=== PATIENT | female | born 1990 | race Caucasian/White ===

== ENCOUNTER 2020-05-06 06:00 | Inpatient (IN) | payer BC ==
[2020-05-06] MEDS ORDERED: ELECTROLYTE-148 SOLN 500 ML IV ONE ×3 (06:30→07:56)
[2020-05-06] MEDS ORDERED: CITRIC ACID/SODIUM CITRATE 30 ML UNIT-DOSE CUP PO ONE ×2 (06:30→07:56)
[2020-05-06 07:08] VITALS: BMI 26.8
[2020-05-06] MEDS ORDERED: morphine SULFATE/PF 0.5 MG/ML (2cc Syringe - QUVA) EP ONE (07:49)
[2020-05-06] MEDS ORDERED: ONDANSETRON 4 MG/2 ML VIAL IVPUSH PRN (07:49)
[2020-05-06] MEDS ORDERED: ceFAZolin SODIUM 1 GM VIAL ONE (07:57)
[2020-05-06] MEDS ORDERED: ELECTROLYTE-148 SOLN 1,000 ML IV SCH (08:00)
[2020-05-06] MEDS ORDERED: OXYTOCIN 10 UNITS/ML VIAL ONE ×2 (08:24→08:47)
[2020-05-06] MEDS ORDERED: SENNOSIDES/DOCUSATE COMBO (SENNA PLUS) TABLET (UD) PO PRN (09:07)
[2020-05-06] MEDS ORDERED: METHYLERGONOVINE MALEATE 0.2 MG/1 ML AMP IM PRN (09:07)
[2020-05-06] MEDS: OXYTOCIN 20 UNITS in 0.9% NS 20 UNIT/1,000 ML INFUS.BAG IV SCH ×2 (09:30→19:00)
[2020-05-06] MEDS ORDERED: OXYTOCIN 20 UNITS in 0.9% NS 20 UNIT/1,000 ML INFUS.BAG IV ONE (09:58)
[2020-05-06] MEDS: IBUPROFEN 800 MG/8 ML IJ IVPB PRN ×2 (11:43→21:35)
[2020-05-06] MEDS: PRENATAL VITAMINS W/ FOLIC ACID TABLET (FP) PO SCH (11:56)
[2020-05-06] MEDS: SIMETHICONE 80 MG TAB.CHEW (FP) PO PRN (21:28)
[2020-05-06] MEDS ORDERED: ZOLPIDEM TARTRATE 5 MG TABLET PO PRN (22:00)
[2020-05-07] MEDS: ACETAMINOPHEN 325 MG TABLET (FP) PO PRN ×2 (05:55→10:00)
[2020-05-07] MEDS: IBUPROFEN 600 MG TABLET (FP) PO PRN ×4 (05:56→20:50)
[2020-05-07] MEDS: SIMETHICONE 80 MG TAB.CHEW (FP) PO PRN ×3 (05:56→20:50)
[2020-05-07] MEDS ORDERED: BISACODYL 10 MG SUPP.RECT RC PRN (09:07)
[2020-05-07 09:11] LABS: BASO % 0.6 % (0-2.0); EOS % 1.9 % (0-4.5); HEMATOCRIT 31.3 % (32.4-45.2); HEMOGLOBIN 10.6 GM/dL (10.7-15.3); LYMPH % 18.8 % (8-40); MCH 30.8 pg (25.7-33.7); MCHC 33.8 g/dl (32.0-36.0); MEAN CELL VOLUME 91.1 fl (80-96); MEAN PLT VOLUME 10.6 fl (7.5-11.1); MONO % 6.3 % (3.8-10.2); NEUT % 72.4 % (42.8-82.8); PLATELET COUNT 142 K/MM3 (134-434); RBC 3.44 M/mm3 (3.60-5.2); RDW 13.1 % (11.6-15.6)
[2020-05-07] MEDS ORDERED: DIPHTH,PERTUSS(ACELL),TET 0.5 ML DISP.SYRIN IM ONE (10:00)
[2020-05-07] MEDS ORDERED: FLU VACCINE (FLULAVAL) PF 60 MCG/0.5 ML SYRINGE 2020-2021 IM ONE (10:00)
[2020-05-07] MEDS: PRENATAL VITAMINS W/ FOLIC ACID TABLET (FP) PO SCH (10:01)
[2020-05-07] MEDS: oxyCODONE HCL 5 MG TABLET PO PRN ×2 (16:03→20:49)
[2020-05-07] MEDS ORDERED: ZOLPIDEM TARTRATE 5 MG TABLET PO PRN ×2 (20:42→22:00)
[2020-05-07] MEDS: OXYTOCIN 20 UNITS in 0.9% NS 20 UNIT/1,000 ML INFUS.BAG IV SCH (22:52)
[2020-05-07 23:40] VITALS: PULSE 61
[2020-05-08] MEDS: SIMETHICONE 80 MG TAB.CHEW (FP) PO PRN ×2 (03:28→08:18)
[2020-05-08] MEDS: IBUPROFEN 600 MG TABLET (FP) PO PRN ×2 (03:31→11:19)
[2020-05-08] MEDS: oxyCODONE HCL 5 MG TABLET PO PRN ×3 (03:32→13:35)
[2020-05-08] MEDS: ACETAMINOPHEN 325 MG TABLET (FP) PO PRN ×2 (08:17→13:36)
[2020-05-08] MEDS: PRENATAL VITAMINS W/ FOLIC ACID TABLET (FP) PO SCH (09:20)
[2020-05-08 09:55] VITALS: BP 136/72; TEMP 98.7
[2020-05-08] MEDS: OXYTOCIN 20 UNITS in 0.9% NS 20 UNIT/1,000 ML INFUS.BAG IV SCH (14:00)
== END 2020-05-08 16:13 | disposition home or self-care (01) | DRG 788 ==
LOC: JLDR 06:00 → J3W 10:43
PROVIDERS: ADMIT Obstetrics & Gynecology; ATTEND Obstetrics & Gynecology
PROC: 10D00Z1 Extraction of Products of Conception, Low, Open Approach (ICD-10-PCS; principal; 2020-05-06)
DX: O34.211 Maternal care for low transverse scar from previous cesarean delivery (principal); Z3A.39 39 weeks gestation of pregnancy; Z37.0 Single live birth
CPT/HCPCS: 36415; 85025; 88307-TC; 90715; G0008; Q2036

== ENCOUNTER 2021-04-21 06:00 | Inpatient (IN) | payer BC ==
[2021-04-21 07:03] VITALS: BMI 25.9
[2021-04-21] MEDS ORDERED: OXYTOCIN 20 UNITS in 0.9% NS 40 UNIT/2,000 ML INFUS.BAG IV ONE (07:58)
[2021-04-21] MEDS ORDERED: CLINDAMYCIN PHOSPHATE 600 MG/4 ML VIAL ONE (08:01)
[2021-04-21] MEDS ORDERED: MORPHINE 5 MG/10 ML AMP - FOR COMPOUNDING USE ONLY ONE (08:08)
[2021-04-21] MEDS ORDERED: ELECTROLYTE-148 SOLN 500 ML IV ONE (08:10)
[2021-04-21] MEDS ORDERED: CITRIC ACID/SODIUM CITRATE 30 ML UNIT-DOSE CUP PO ONE (08:10)
[2021-04-21] MEDS ORDERED: ELECTROLYTE-148 SOLN 1,000 ML IV SCH (08:15)
[2021-04-21] MEDS ORDERED: PHENYLEPHRINE HCL 10 MG/1 ML SINGLE DOSE VIAL ONE (08:24)
[2021-04-21] MEDS ORDERED: DEXAMETHASONE SOD PHOSPHATE 4 MG/1 ML VIAL ONE (08:33)
[2021-04-21] MEDS ORDERED: ONDANSETRON 4 MG/2 ML VIAL ONE (08:33)
[2021-04-21] MEDS ORDERED: KETOROLAC TROMETHAMINE 30 MG/1 ML VIAL ONE (08:33)
[2021-04-21] MEDS ORDERED: MIDAZOLAM HCL 2 MG/2 ML SINGLE DOSE VIAL ONE (08:44)
[2021-04-21] MEDS ORDERED: ONDANSETRON 4 MG/2 ML VIAL IVPUSH PRN (09:22)
[2021-04-21] MEDS ORDERED: ACETAMINOPHEN 1000 MG/100 ML VIAL (NON FORMULARY) IVPB PRN (09:23)
[2021-04-21] MEDS ORDERED: IBUPROFEN 800 MG/8 ML IJ IVPB PRN (09:27)
[2021-04-21] MEDS ORDERED: METHYLERGONOVINE MALEATE 0.2 MG/1 ML AMP IM PRN (09:27)
[2021-04-21] MEDS ORDERED: SENNOSIDES/DOCUSATE COMBO (SENNA PLUS) TABLET (UD) PO PRN (09:27)
[2021-04-21] MEDS ORDERED: OXYTOCIN 20 UNITS in 0.9% NS 20 UNIT/1,000 ML INFUS.BAG IV SCH (09:30)
[2021-04-21] MEDS: PRENATAL VITAMINS W/ FOLIC ACID TABLET (FP) PO SCH (10:26)
[2021-04-21] MEDS ORDERED: CALCIUM CARBONATE 650 MG TABLET PO PRN (19:34)
[2021-04-22] MEDS: ZOLPIDEM TARTRATE 5 MG TABLET PO PRN (00:49)
[2021-04-22 06:53] LABS: BASO % 0.7 % (0-2.0); EOS % 1.4 % (0-4.5); HEMATOCRIT 24.6 % (32.4-45.2); HEMOGLOBIN 8.7 GM/dL (10.7-15.3); LYMPH % 25.9 % (8-40); MCH 31.1 pg (25.7-33.7); MCHC 35.3 g/dl (32.0-36.0); MEAN CELL VOLUME 88.1 fl (80-96); MEAN PLT VOLUME 9.8 fl (7.5-11.1); MONO % 5.5 % (3.8-10.2); NEUT % 66.5 % (42.8-82.8); PLATELET COUNT 174 10^3/uL (134-434); RDW 13.5 % (11.6-15.6)
[2021-04-22] MEDS: oxyCODONE HCL 5 MG TABLET PO PRN ×3 (08:15→22:58)
[2021-04-22] MEDS: ACETAMINOPHEN 325 MG TABLET (FP) PO PRN ×2 (08:17→15:58)
[2021-04-22] MEDS: SIMETHICONE 80 MG TAB.CHEW (FP) PO PRN ×3 (08:17→21:53)
[2021-04-22] MEDS: PRENATAL VITAMINS W/ FOLIC ACID TABLET (FP) PO SCH (09:30)
[2021-04-22] MEDS: IBUPROFEN 600 MG TABLET (FP) PO PRN ×2 (10:52→21:53)
[2021-04-22] MEDS: BISACODYL 10 MG SUPP.RECT RC PRN (20:08)
[2021-04-23] MEDS: ZOLPIDEM TARTRATE 5 MG TABLET PO PRN (01:00)
[2021-04-23] MEDS: oxyCODONE HCL 5 MG TABLET PO PRN ×4 (07:41→19:44)
[2021-04-23] MEDS: SIMETHICONE 80 MG TAB.CHEW (FP) PO PRN ×3 (07:41→19:44)
[2021-04-23] MEDS: FERROUS SO4 325 MG TABLET (FP) PO SCH ×2 (09:30→18:03)
[2021-04-23] MEDS: PRENATAL VITAMINS W/ FOLIC ACID TABLET (FP) PO SCH (09:30)
[2021-04-23] MEDS: BISACODYL 10 MG SUPP.RECT RC PRN (14:45)
[2021-04-24] MEDS: oxyCODONE HCL 5 MG TABLET PO PRN (07:25)
[2021-04-24] MEDS: PRENATAL VITAMINS W/ FOLIC ACID TABLET (FP) PO SCH (09:15)
[2021-04-24] MEDS: FERROUS SO4 325 MG TABLET (FP) PO SCH (09:15)
[2021-04-24 11:47] VITALS: BP 130/65; PULSE 70; TEMP 97.8
== END 2021-04-24 11:05 | disposition home or self-care (01) | DRG 788 ==
LOC: JLDR 06:00 → J3W 10:45
PROVIDERS: ADMIT Obstetrics & Gynecology; ATTEND Obstetrics & Gynecology
PROC: 10D00Z1 Extraction of Products of Conception, Low, Open Approach (ICD-10-PCS; principal; 2021-04-21)
DX: O34.211 Maternal care for low transverse scar from previous cesarean delivery (principal); Z3A.39 39 weeks gestation of pregnancy; Z37.0 Single live birth
CPT/HCPCS: 36415; 85025; 88307-TC

== ENCOUNTER 2025-01-29 06:07 | Day surgery (SDC) | payer BC ==
[2025-01-25 12:44] VITALS: BMI 21.7
[2025-01-29] MEDS ORDERED: GENTAMICIN SO4 80 MG/2 ML VIAL ONE (07:42)
[2025-01-29] MEDS ORDERED: BUPIVACAINE HCL/PF 0.25% (2.5MG/ML) 10 ML VIAL ONE (07:43)
[2025-01-29] MEDS ORDERED: LIDOCAINE 1%/EPI 1:100000 (20 ML MULTI DOSE VIAL) ONE (07:43)
[2025-01-29] MEDS ORDERED: EPINEPHrine 1:1000 P/F - 1 MG/ML AMP ONE (07:53)
[2025-01-29] MEDS ORDERED: MIDAZOLAM HCL 2 MG/2 ML SINGLE DOSE VIAL ONE ×2 (07:56→08:06)
[2025-01-29] MEDS ORDERED: PROPOFOL 60 ML ONE (07:56)
[2025-01-29] MEDS ORDERED: ONDANSETRON 4 MG/2 ML VIAL ONE (07:57)
[2025-01-29] MEDS ORDERED: SUCCINYLCHOLINE CHLORIDE 200 MG/10 ML SYRINGE ONE ×2 (07:57→08:13)
[2025-01-29] MEDS ORDERED: DEXAMETHASONE SOD PHOSPHATE 4 MG/1 ML VIAL ONE (07:57)
[2025-01-29] MEDS ORDERED: SEVOFLURANE 250 ML BTL ONE (07:57)
[2025-01-29] MEDS ORDERED: LIDOCAINE HCL 2% 100 MG/5 ML DISP.SYRIN ONE (08:11)
[2025-01-29] MEDS ORDERED: ROCURONIUM BROMIDE 50 MG/5 ML SYRINGE ONE (08:13)
[2025-01-29] MEDS ORDERED: TRANEXAMIC ACID 1000 MG/10 ML VIAL ONE (08:24)
[2025-01-29] MEDS ORDERED: methylPREDNISolone ACET (DEPO) 80 MG/1 ML VIAL ONE (09:39)
[2025-01-29] MEDS ORDERED: BUPIVACAINE LIPOSOME/PF (EXPAREL) 266 MG/20 ML VIAL ONE (09:41)
[2025-01-29] MEDS ORDERED: VANCOMYCIN 1,000 MG VIAL (RESTRICTED TO ID ONLY) ONE (09:45)
[2025-01-29] MEDS: methylPREDNISolone ACET (DEPO) 80 MG/1 ML VIAL IJ ONE (09:45)
[2025-01-29] MEDS: BUPIVACAINE LIPOSOME/PF (EXPAREL) 266 MG/20 ML VIAL IJ ONE (09:50)
[2025-01-29] MEDS: VANCOMYCIN 1,000 MG VIAL (RESTRICTED TO ID ONLY) IVPB ONE (09:55)
[2025-01-29] MEDS ORDERED: PROPOFOL 20 ML ONE (10:00)
[2025-01-29] MEDS ORDERED: LACTATED RINGERS SOLUTION 1,000 ML IV SCH (10:30)
[2025-01-29] MEDS ORDERED: ONDANSETRON 4 MG/2 ML VIAL IVPUSH PRN (10:30)
[2025-01-29] MEDS ORDERED: PROMETHAZINE HCL 25 MG/1 ML VIAL IVPB PRN ×2 (10:30→11:04)
[2025-01-29] MEDS: ACETAMINOPHEN 1000 MG/100 ML BAG IVPB ONE (10:45)
[2025-01-29] MEDS ORDERED: ACETAMINOPHEN 500 MG TABLET (FP) PO SCH (10:45)
[2025-01-29] MEDS ORDERED: morphine CARPU-JECT 4 MG/1 ML DISP.SYRIN IVPUSH PRN (11:04)
[2025-01-29] MEDS ORDERED: HEPARIN NA (PORCINE) 5,000 UNITS/ML 1ML VIAL SQ SCH (11:04)
[2025-01-29] MEDS ORDERED: diphenhydrAMINE HCL 25 MG CAPSULE (FP) PO PRN (11:04)
[2025-01-29] MEDS: LACTATED RINGERS SOLUTION 1,000 ML IV SCH (11:51)
[2025-01-29] MEDS: ONDANSETRON 4 MG/2 ML VIAL IVPUSH PRN ×2 (15:46→21:49)
[2025-01-29] MEDS: DOCUSATE SODIUM 100 MG CAPSULE (FP) PO SCH (16:16)
[2025-01-29] MEDS ORDERED: METOCLOPRAMIDE HCL 10 MG TABLET (FP) PO ONE (17:24)
[2025-01-29] MEDS: FAMOTIDINE 10 MG TABLET PO ONE (17:57)
[2025-01-29] MEDS: ACETAMINOPHEN 325 MG TABLET (FP) PO SCH (17:58)
[2025-01-29] MEDS: PANTOPRAZOLE SOD 40 MG SUSPENSION PACKET PO SCH (17:58)
[2025-01-29] MEDS: CEFAZOLIN 1 GM/D5W 1 GM/50 ML BAG IVPB SCH (18:48)
[2025-01-29] MEDS: LACTATED RINGERS SOLUTION 1,000 ML/1,000 ML INFUS.BAG IV SCH (19:06)
[2025-01-30 08:44] LABS: MCHC 32.6 g/dl (32.2-35.5); MEAN CELL VOLUME 90.5 fl (79.4-94.8); MEAN PLT VOLUME 10.7 fl (9.4-12.3); RDW 12.4 % (12.1-16.8)
[2025-01-30 09:12] LABS: CO2 26.0 mmol/L (21-32); GLUCOSE,RANDOM 99.0 mg/dL (74-106)
[2025-01-30] MEDS: FERROUS SO4 325 MG TABLET (FP) PO SCH (09:14)
[2025-01-30] MEDS: FOLIC ACID 1 MG TABLET (FP) PO SCH (09:14)
[2025-01-30 09:15] LABS: CREATININE 0.5 mg/dL (0.55-1.3)
[2025-01-30 10:19] LABS: IRON SERUM 57.0 ug/dL (50-175)
[2025-01-30 17:19] VITALS: BP 106/70; PULSE 77; RESP 17; TEMP 97.7
== END 2025-01-30 17:43 | disposition home or self-care (01) ==
LOC: JASUSAT 06:07 → SUATTDRO 06:07 → J8W 12:19 → JASUSAT 01-30 17:43
PROVIDERS: ATTEND Internal Medicine
PROC: 0JX70ZC Transfer Back Subcutaneous Tissue and Fascia with Skin, Subcutaneous Tissue and Fascia, Open Approach (ICD-10-PCS; 2025-01-29)
PROC: 00NY0ZZ Release Lumbar Spinal Cord, Open Approach (ICD-10-PCS; principal; 2025-01-29 08:00)
DX: M48.061 Spinal stenosis, lumbar region without neurogenic claudication (principal)
CPT/HCPCS: 36415; 76000-TC-FY; 80048; 82728; 83540; 83550; 84466; 85027; 86850; 86900; 86901; 94010; 94760; 97116-GP; 97161-GP; J0666